=== PATIENT | male | born 1945 | race Caucasian/White ===

== ENCOUNTER 2025-07-13 11:59 | Outpatient (CLI) | payer MEDICARE, BC, SELFPAY ==
--- NOTE | 2025-07-13 12:15 | CRLHL7_ITS ---
For Patients: As a result of the Century Cures Act, medical imaging exams and procedure reports are released immediately into your electronic medical record. You may view this report before your referring provider. If you have questions, please contact your health care provider. Indication: Lumbar intervertebral disc degeneration Technique: Multiplanar, multisequence, MRI of the lumbar spine, obtained without contrast. Comparison: Lumbar spine x-ray 08/20/2024 Findings: Preserved lumbar lordosis. Grade 1 retrolisthesis at L3-4, grade 1 anterolisthesis at L4-5, grade 1 retrolisthesis at L5-S1. No acute osseous abnormality. No suspicious bone marrow lesion. Focal bony edema at the left L4-5 facet joint, compatible with inflammatory/stress reaction. Conus medullaris terminates at L1-2. No concerning findings in the paravertebral soft tissues. Included SI joints are unremarkable. T12-L1: No significant neural foraminal or spinal canal stenosis. L1-L2: No significant neural foraminal or spinal canal stenosis. L2-L3: Mild disc bulge. No neural foraminal or spinal canal stenosis. L3-L4: Diffuse disc-osteophyte complex, mild facet arthropathy. Moderate bilateral neural foraminal stenosis. Mild spinal canal narrowing. L4-L5: Diffuse disc bulge, moderate facet arthropathy. Moderate bilateral neural foraminal stenosis. Severe spinal canal stenosis with potential L5 nerve root impingement along both lateral recesses. L5-S1: Mild disc-osteophyte complex, mild facet arthropathy. Mild right, moderate left neural foraminal stenosis. No spinal canal stenosis. Impression: 1. Lumbar spondylosis with low-grade degenerative spondylolisthesis as detailed. 2. Focal bony edema at the left L4-5 facet joint, compatible with inflammatory/stress reaction. 3. At L3-L4, moderate bilateral neural foraminal stenosis, and mild spinal canal narrowing. 4. At L4-L5, moderate bilateral neural foraminal stenosis, with severe spinal canal stenosis and potential L5 nerve root impingement along both lateral recesses. 5. At L5-S1, moderate left neuroforaminal stenosis and mild right neural foraminal narrowing. Dictated by Danielle Calvin MD @ 07/14/2025 1:01:46 PM (Electronically Signed)
== END 2025-07-13 12:00 | disposition home or self-care (01) ==
LOC: MRI 12:01
PROVIDERS: Visit Provider Orthopaedic Surgery Sports Medicine
DX: M51.362 Other intervertebral disc degeneration, lumbar region with discogenic back pain and lower extremity pain (principal); M43.16 Spondylolisthesis, lumbar region; M48.061 Spinal stenosis, lumbar region without neurogenic claudication; M48.07 Spinal stenosis, lumbosacral region
CPT/HCPCS: 72148

== ENCOUNTER 2025-08-12 07:52 | Outpatient (CLI) | payer MEDICARE, BC, SELFPAY | END 2025-08-12 07:53 | disposition home or self-care (01) | LOC: INJ CL 07:53 | PROVIDERS: Visit Provider Family Medicine | DX: M54.16 Radiculopathy, lumbar region (principal); M48.062 Spinal stenosis, lumbar region with neurogenic claudication | CPT/HCPCS: 64483; J1100; Q9966 ==